=== PATIENT | male | born 1960 | race American Indian/Alaskan Native ===

== ENCOUNTER 2020-09-22 11:02 | Outpatient (CLI) | payer MEDICARE ==
[2020-09-22 11:59] LABS: Blood Urea Nitrogen 14 mg/dL (9-20)
--- NOTE | 2020-09-24 09:10 | Cat Scan Report ---
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 TECHNIQUE: Cervical spine CT with IV contrast. All CT scans at this location are performed using CT dose reducti on for ALARA by means of automated exposure control. COMPARISON: None available. FINDINGS: There are a few small scattered lucent lesions in the cervical spine which may indicate small osseous metastases. There is no large soft tissue component. There is a pathologic fracture. There is mild degenerative disc disease from C3 through C7 with small osteophytes. There is no apprec iable significant spinal canal stenosis. Overall alignment is normal. Visualized prevertebral soft tissues appear unremarkable. IMPRESSION: 1. A few small lucent lesions are present in the cervical spine likely indicating small metastatic le sions. There is no pathologic fracture or appreciable soft tissue component of the lesions. Signer Name: Romaine Rodgers MD Signed: 09/24/2020 9:06 AM Workstation Name: [id number]
--- NOTE | 2020-09-24 09:24 | Cat Scan Report ---
CT THORACIC SPINE WITHOUT CONTRAST INDICATION / CLINICAL INFORMATION: C79.51/MAILGNANT NEOPLASM OF BONE. Prostate cancer patient with osseous metastasis. TECHNIQUE: Axial CT images were obtained through the thoracic spine. Sagittal and coronal reformatted images wer e produced. All CT scans at this location are performed using CT dose reduction for ALARA by means of automated exposure control. COMPARISON: Bone scan 08/26/2020 FINDINGS: VERTEBRAE: Sclerotic lesions are identified in the T2, T5, T6, T7, T8, T9, T10, T11 and T12 vertebrae . Most pronounced disease is at the T9 level where involvement of the posterior elements is observed. There is expansion of the right pedicle. There is a suggestion of extra osseous disease extending th rough posterior cortex of the vertebral body to the right of the midline. These findings result in na rrowing of the central spinal canal. Rib involvement is demonstrated on the right at the T8, T9 and T 10 levels. ALIGNMENT: Normal alignment is maintained. DISC SPACES: Disc desiccation is noted at multiple levels. FACET and COSTOVERTEBRAL JOINTS: Disease extension across the costovertebral joints into the adjacent ribs is observed on the right at the T8, T9 and T10 levels. CERVICOTHORACIC JUNCTION:No significant abnormality. SPINAL CANAL: Central spinal canal is narrowed at the T9 level were asked are osseous extension of di sease is seen into the epidural space as described above. PARASPINAL SOFT TISSUES: No significant abnormality. LUNGS: Visualized portions the lung are free from confluent infiltrate. No lung nodules are identifie d. There is no indication of pleural effusion.A pleural-based mass is demonstrated is located on the lateral wall of the right hemithorax adjacent to the fourth and fifth ribs. IMPRESSION: 1. Widespread metastatic disease to bone as described in detail above. 2. Most pronounced involvement is the level of the T9 vertebrae where involvement of the proximal sup erior elements is a prominent finding and marked extra osseous extension of disease narrows the centr al spinal canal. Signer Name: Rc Don MD Signed: 09/24/2020 9:20 AM Workstation Name: [id number]
--- NOTE | 2020-09-24 09:41 | Cat Scan Report ---
CT LUMBAR SPINE WITHOUT CONTRAST INDICATION / CLINICAL INFORMATION: C79.51/MAILGNANT NEOPLASM OF BONE. Prostate cancer patient with bone metastases. TECHNIQUE: Axial CT images were obtained through the lumbar spine. Sagittal and coronal reformatted images were produced. All CT scans at this location are performed using CT dose reduction for ALARA by means of a utomated exposure control. COMPARISON: Bone scan 08/26/2020 FINDINGS: TRAUMA:There is no indication of fracture or traumatic subluxation. OVERVIEW: Transitional vertebral anatomy is noted with partial sacralization of the fifth lumbar vert ebrae. Sacralized left L5 transverse process is fused to the S1 sacral ala. ALIGNMENT: No significant abnormality of alignment in the lumbar region. VERTEBRAE: Widespread metastatic disease to bone is identified. Small blastic metastases are identifi ed at the T12, L1, L2, L3-L4, L5 and S1 vertebrae. The largest of these lesions is in the S1 vertebra e. A sclerotic metastasis is observed in the sacralized transverse process of L5 on the left. There i s no indication of extra osseous extension of disease. DISC SPACES: Loss of disc height and disc vacuum phenomena L3-4. DEGENERATIVE CHANGES:Degenerative changes are noted at the L3-4 level where disc vacuum phenomena, br oad-based disc bulge and facet arthropathy are observed. In addition there is calcified left paracent ral and foraminal disc protrusion. Moderate central canal stenosis is evident. Left lateral recess st enosis is observed and there is mild left-sided L3 nerve root neuroforaminal stenosis. Anterior osteo phyte formation is prominent finding at the L1-2 and L2-3 levels. This lateralizes to the right. SPINAL CANAL: Central spinal canal is adequate in size throughout the lumbar region. SACRUM:S1 sacral metastasis is described above.. PARASPINAL SOFT TISSUES: No significant abnormality. ADDITIONAL FINDINGS: None. IMPRESSION: 1. Widespread metastatic disease throughout the lumbar spine and sacrum. No indication of extra osseo us extension of disease in this region 2. Degenerative changes at L3-4 as described above.. Signer Name: Rc Don MD Signed: 09/24/2020 9:36 AM Workstation Name: [id number]
== END 2020-09-22 11:03 | disposition home or self-care (01) ==
LOC: CT 11:02
PROVIDERS: ATTEND Radiology Radiation Oncology
DX: C79.51 Secondary malignant neoplasm of bone (principal); M47.816 Spondylosis without myelopathy or radiculopathy, lumbar region; M48.061 Spinal stenosis, lumbar region without neurogenic claudication; M51.26 Other intervertebral disc displacement, lumbar region; M25.78 Osteophyte, vertebrae; G95.89 Other specified diseases of spinal cord; M50.323 Other cervical disc degeneration at C6-C7 level
CPT/HCPCS: 36415; 72126; 72129; 72132; 82565; 84520; Q9967